=== PATIENT | female | born 1995 | race American Indian/Alaskan Native ===

== ENCOUNTER 2017-07-02 18:30 | Observation (INO) | payer MEDICAID ==
[2017-07-02] MEDS ORDERED: LACTATED RINGERS 1,000 ML IV ONE ×2 (19:33→22:06)
[2017-07-02 20:58] LABS: Bilirubin,Urine NEG (Negative); Blood,Urine NEG (Negative); Color,Urine Yellow (Yellow); Mucus,Urine FEW /HPF; Nitrite,Urine NEG (Negative); Protein,Urine <15 mg/dL mg/dL (Negative); Urobilinogen,Urine < 2.0 mg/dL (<2.0)
[2017-07-02] MEDS ORDERED: PROCARDIA*For Tocolysis only PO SCH ×2 (22:00→23:00)
[2017-07-02] MEDS: PROCARDIA*For Tocolysis only PO SCH ×2 (22:42→23:05)
[2017-07-02] MEDS ORDERED: LACTATED RINGERS 1,000 ML IV SCH (23:45)
[2017-07-03] MEDS: PROCARDIA*For Tocolysis only PO SCH ×2 (02:25→06:47)
[2017-07-03 08:32] LABS: Hematocrit 27.5 % (30.3-42.9); Hemoglobin 8.6 gm/dl (10.1-14.3); Mean Corpuscular HGB Conc 31 % (30-34); Mean Corpuscular Volume 76 fl (79-97); Platelet Count 357 K/mm3 (140-440); Red Blood Count 3.63 M/mm3 (3.65-5.03); Red Cell Distribution Width 19.4 % (13.2-15.2)
[2017-07-03 08:33] LABS: Mean Corpuscular Hemoglobin 24 pg (28-32)
[2017-07-03 08:42] VITALS: BP 115/63
[2017-07-03 09:23] LABS: Alanine Aminotransferase 9 units/L (7-56); Albumin 3.1 g/dL (3.9-5); BUN/Creatinine Ratio 13; Blood Urea Nitrogen 5 mg/dL (7-17); Calcium 8.5 mg/dL (8.4-10.2); Hemolysis Index 3
[2017-07-03] MEDS ORDERED: PRENATAL VITAMIN PO SCH (10:00)
[2017-07-03] MEDS ORDERED: TYLENOL PO NR (10:00)
== END 2017-07-03 10:17 | disposition home or self-care (01) ==
LOC: TRG 18:30 → LD 07-03 00:03
PROVIDERS: ADMIT Obstetrics & Gynecology; ATTEND Obstetrics & Gynecology
DX: Z34.90 Encounter for supervision of normal pregnancy, unspecified, unspecified trimester (principal); Z3A.00 Weeks of gestation of pregnancy not specified
CPT/HCPCS: 36415; 80053; 81001; 82731; 85027; 96360; 96361; G0378; J7120

== ENCOUNTER 2017-07-23 21:02 | Inpatient (IN) | payer MEDICAID ==
[2017-07-23] MEDS ORDERED: STADOL IV PRN (21:15)
[2017-07-23 22:27] LABS: Basophils % (Auto) 0.4 % (0.0-1.8); Eosinophils % (Auto) 0.1 % (0.0-4.3); Hematocrit 27.4 % (30.3-42.9); Hemoglobin 8.5 gm/dl (10.1-14.3); Lymphocytes # (Auto) 2.1 K/mm3 (1.2-5.4); Mean Corpuscular HGB Conc 31 % (30-34); Mean Corpuscular Volume 76 fl (79-97); Monocytes # (Auto) 0.6 K/mm3 (0.0-0.8); Monocytes % (Auto) 5.3 % (0.0-7.3); Platelet Count 404 K/mm3 (140-440); Red Blood Count 3.63 M/mm3 (3.65-5.03); Red Cell Distribution Width 19.7 % (13.2-15.2)
[2017-07-23] MEDS: LACTATED RINGERS 1,000 ML IV SCH (22:29)
[2017-07-23 22:31] LABS: Mean Corpuscular Hemoglobin 23 pg (28-32)
--- NOTE | 2017-07-23 22:51 | Ultrasound Report ---
FINAL REPORT PROCEDURE: US OB FOLLOW UP TECHNIQUE: Real-time transabdominal sonography of the uterus, placenta, amniotic fluid, adnexa, and fetus was performed with image documentation. Measurements were obtained to determine age/size. M-mode Doppler was used to document heartbeat. CPT 36314 HISTORY: ROM, macrosomia COMPARISON: No prior studies are available for comparison. FINDINGS: ADDITIONAL GESTATION: None. GENERAL: IUP: Single living intrauterine . Position: Cephalic Placental position: Grade 2 anterior, without previa. Amniotic fluid volume: Normal. MATERNAL: Uterus: Within normal limits. Cervical length: 2.9 cm. Internal Os: Closed. Small amount of fluid collection in the vaginal canal proximal cervix FETUS: Heart rate and rhythm: 147 BPM, Regular. MEASUREMENTS: BPD: 9.8 consistent 40 week 1 day HC: 35.5 consistent 41 week 5 day AC: 36.5 consistent 40 weeks 3 days FL: 8.1 consistent 41 week 3 day Mean Gestational Age (composite criteria): 41 week 0 day Ratio biometry: As above Estimated Weight: 4185 grams. Estimated Due Date (earliest scan): 07/16/2017 IMPRESSION: Single intrauterine gestation at 41 week 0 day. Estimated due date: 07/16/2017. Normal survey with appropriate growth.
[2017-07-23] MEDS ORDERED: PITOCin/NS 30 UNIT/500ML 30 UNITS/500 ML BAG IV SCH ×2 (23:45)
[2017-07-23] MEDS ORDERED: PITOCin/NS 20 UNIT/1000ML DRIP 20 UNITS/1,000 ML BAG IV SCH (23:45)
[2017-07-23] MEDS ORDERED: LACTATED RINGERS 1,000 ML IV SCH (23:45)
[2017-07-23] MEDS ORDERED: NUBAIN IV PRN (23:48)
[2017-07-23] MEDS ORDERED: NARCAN 0.4 MG/1 ML IV PRN (23:48)
[2017-07-23] MEDS ORDERED: BRETHINE IVP PRN (23:48)
[2017-07-23] MEDS ORDERED: PHENERGAN PR PRN (23:48)
[2017-07-23] MEDS ORDERED: ZOFRAN IV PRN (23:48)
[2017-07-23] MEDS ORDERED: SUBLIMAZE IV PRN (23:48)
[2017-07-23] MEDS ORDERED: MINERAL OIL PO PRN (23:48)
[2017-07-23] MEDS ORDERED: BRETHINE SUB-Q PRN (23:48)
[2017-07-23] MEDS ORDERED: XYLOCAINE 2% INFILTRATI ONE (23:48)
[2017-07-23] MEDS ORDERED: ePHEDrine SULFATE IV PRN (23:48)
--- NOTE | 2017-07-24 | History and Physical Report ---
History of Present Illness Date of examination: 07/23/17 Date of admission: 07/23/17 21:02 Chief complaint: broke my water History of present illness: This is a 21 yo at 37+3 weeks admitted to labor and delivery for gross rupture. She stated that she broke her water at 845. her course include LGA. Previous US 4022g on 07/12/17. plan per MFM ( spoke with Dr. Jackson) was to repeat her US at 38 weeks and if >4500 g could offer Primary csec. US performed today shows EFW 4185g. It was then discussed tonight r/b/a of primary c/sec. We agreed after discussing ACOG recommendations for a trial of labor. We had a long discussion with [employer] and and all agreed for a trial of labor. Patient has been patient of [facility] since 9 weeks with early US. She has anemia with hemoglobin at 28 weeks of 8. She has glucose intolerance but 3hr GTT neg. Past History Past Medical History: no pertinent history Past Surgical History: no surgical history Family/Genetic History: none Social history: no significant social history, . denies: smoking, alcohol abuse, prescription drug abuse - Obstetrical History Expected Date of Delivery: 08/10/17 Actual Gestation: 37 Week(s) 4 Day(s) : 1 Para: 0 Hx # Term Pregnancies: 0 Number of Pregnancies: 0 Spontaneous Abortions: 0 Induced : 0 Number of Living Children: 0 Medications and Allergies Allergies Allergy/AdvReac Type Severity Reaction Status Date / Time No Known Allergies Allergy Unverified 07/02/17 18:30 Home Medications Medication Instructions Recorded Confirmed Last Taken Type No Known Home Medications [No 07/03/17 07/03/17 Unknown History Reported Home Medications] Active Meds: Active Medications Butorphanol Tartrate (Stadol) 2 mg IV Q2H PRN PRN Reason: Labor Pain Lactated Ringer's (Lactated Ringers) 1,000 mls @ 125 mls/hr IV DIRECT DEB Last Admin: 07/23/17 22:29 Dose: 125 mls/hr Review of Systems All systems: negative Genitourinary: leakage of fluid - Vital Signs Vital signs: Vital Signs Temp Pulse Resp BP 98.2 F 87 18 126/62 07/23/17 21:19 07/23/17 21:19 07/23/17 21:19 07/23/17 21:19 Temp Pulse Resp BP Pulse Ox 98.2 F 87 18 126/62 07/23/17 21:19 07/23/17 21:24 07/23/17 21:19 07/23/17 21:24 - Physical Exam Breasts: Positive: normal Cardiovascular: Regular rate, Normal S1 Lungs: Positive: Clear to auscultation, Normal air movement Abdomen: Positive: normal appearance, soft, normal bowel sounds. Negative: distention, tenderness, guarding Genitourinary (Female): Positive: normal external genitalia, normal perenium Vulva: both: normal Vagina: Positive: normal moisture Uterus: Positive: enlarged Adnexa: both: normal Anus/Rectum: Positive: normal perianal skin Extremities: Positive: normal Deep Tendon Reflex Grade: Normal +2 - Obstetrical FHR: category 1 Uterine Contraction Monitor Mode: External Cervical Dilatation: 1 Cervical Effacement Percentage: 50 station: 3 Uterine Contraction Pattern: Irregular Uterine Tone Measurement Phase: Contraction Uterine Contraction Intensity: Mild Results Result Diagrams: 07/23/17 22:03 Abnormal lab results 07/23/17 Range/Units 22:03 WBC 11.6 H (4.5-11.0) K/mm3 RBC 3.63 L (3.65-5.03) M/mm3 Hgb 8.5 L (10.1-14.3) gm/dl Hct 27.4 L (30.3-42.9) % MCV 76 L (79-97) fl MCH 23 L (28-32) pg RDW 19.7 H (13.2-15.2) % Seg Neutrophils % 76.2 H (40.0-70.0) % Seg Neutrophils # 8.8 H (1.8-7.7) K/mm3 All other labs normal. Assessment and Plan A/P HD#1 SROM, term at 37+4 weeks, LGA admit to labor and delivery counseled about risk of primary c/sec vs trial of labor offer epidural initate pitocin for IOL close monitor of labor curve close monitor of maternal and status
[2017-07-24] MEDS: LACTATED RINGERS 1,000 ML IV SCH ×2 (02:49→08:35)
--- NOTE | 2017-07-24 07:58 | Progress Note ---
Assessment and Plan A: IUP at term Remote from delivery LGA Category 2 tracing P: MD consult Primary C/S Subjective - Subjective Date of service: 07/24/17 Patient reports: loss of fluid (clear), movement normal, contractions, no new complaints, no vaginal bleeding Objective - Vital Signs Vital Signs: Vital Signs - 12hr 07/23/17 07/23/17 07/24/17 21:19 21:24 03:15 Temperature 98.2 F Pulse Rate 87 87 71 Respiratory 18 Rate Blood Pressure 126/62 127/81 Blood Pressure 126/62 [Left] O2 Sat by Pulse 98 Oximetry 07/24/17 07/24/17 07/24/17 03:20 03:25 03:30 Temperature Pulse Rate 78 72 94 H Respiratory Rate Blood Pressure Blood Pressure [Left] O2 Sat by Pulse 97 96 96 Oximetry 07/24/17 07/24/17 07/24/17 03:35 03:40 03:45 Temperature Pulse Rate 70 71 65 Respiratory Rate Blood Pressure Blood Pressure [Left] O2 Sat by Pulse 96 97 96 Oximetry 07/24/17 07/24/17 07/24/17 03:50 03:55 04:00 Temperature Pulse Rate 81 77 73 Respiratory Rate Blood Pressure Blood Pressure [Left] O2 Sat by Pulse 97 97 96 Oximetry 07/24/17 07/24/17 07/24/17 04:01 04:05 04:10 Temperature Pulse Rate 91 H 70 80 Respiratory Rate Blood Pressure Blood Pressure [Left] O2 Sat by Pulse 94 97 96 Oximetry 07/24/17 07/24/17 07/24/17 04:15 04:20 04:25 Temperature Pulse Rate 73 97 H 92 H Respiratory Rate Blood Pressure 125/81 Blood Pressure [Left] O2 Sat by Pulse 97 97 97 Oximetry 07/24/17 07/24/17 07/24/17 04:30 04:32 04:35 Temperature Pulse Rate 93 H 77 82 Respiratory Rate Blood Pressure Blood Pressure [Left] O2 Sat by Pulse 97 94 96 Oximetry 07/24/17 07/24/17 07/24/17 04:40 04:45 04:50 Temperature Pulse Rate 68 74 73 Respiratory Rate Blood Pressure Blood Pressure [Left] O2 Sat by Pulse 96 96 96 Oximetry 07/24/17 07/24/17 07/24/17 04:55 05:00 05:05 Temperature Pulse Rate 89 67 89 Respiratory Rate Blood Pressure Blood Pressure [Left] O2 Sat by Pulse 98 96 98 Oximetry 07/24/17 07/24/17 07/24/17 05:08 05:16 05:21 Temperature Pulse Rate 86 Respiratory 18 Rate Blood Pressure Blood Pressure [Left] O2 Sat by Pulse 99 97 Oximetry 07/24/17 07/24/17 07/24/17 05:26 05:31 05:36 Temperature Pulse Rate 84 89 75 Respiratory Rate Blood Pressure Blood Pressure [Left] O2 Sat by Pulse 98 96 96 Oximetry 07/24/17 07/24/17 07/24/17 05:41 05:46 05:51 Temperature Pulse Rate 95 H 79 80 Respiratory Rate Blood Pressure Blood Pressure [Left] O2 Sat by Pulse 97 96 96 Oximetry 07/24/17 07/24/17 07/24/17 05:56 06:01 06:06 Temperature Pulse Rate 74 87 76 Respiratory Rate Blood Pressure Blood Pressure [Left] O2 Sat by Pulse 96 96 97 Oximetry 07/24/17 07/24/17 07/24/17 06:11 06:15 06:16 Temperature Pulse Rate 76 68 71 Respiratory Rate Blood Pressure 126/66 Blood Pressure [Left] O2 Sat by Pulse 97 97 Oximetry 07/24/17 07/24/17 07/24/17 06:21 06:26 06:31 Temperature Pulse Rate 96 H 84 76 Respiratory Rate Blood Pressure Blood Pressure [Left] O2 Sat by Pulse 97 97 97 Oximetry 07/24/17 07/24/17 07/24/17 06:33 06:36 06:40 Temperature Pulse Rate 78 82 88 Respiratory Rate Blood Pressure Blood Pressure [Left] O2 Sat by Pulse 94 96 94 Oximetry 07/24/17 07/24/17 07/24/17 06:41 06:46 06:51 Temperature Pulse Rate 92 H 88 73 Respiratory Rate Blood Pressure Blood Pressure [Left] O2 Sat by Pulse 92 97 96 Oximetry 07/24/17 07/24/17 07/24/17 06:54 06:56 07:01 Temperature Pulse Rate 98 H 62 77 Respiratory Rate Blood Pressure Blood Pressure [Left] O2 Sat by Pulse 94 97 97 Oximetry 07/24/17 07/24/17 07/24/17 07:06 07:11 07:16 Temperature Pulse Rate 70 69 76 Respiratory Rate Blood Pressure 139/93 Blood Pressure [Left] O2 Sat by Pulse 98 96 98 Oximetry 07/24/17 07/24/17 07/24/17 07:21 07:25 07:26 Temperature Pulse Rate 66 67 66 Respiratory Rate Blood Pressure Blood Pressure [Left] O2 Sat by Pulse 96 94 94 Oximetry 07/24/17 07/24/17 07/24/17 07:31 07:33 07:36 Temperature Pulse Rate 82 93 H 83 Respiratory Rate Blood Pressure Blood Pressure [Left] O2 Sat by Pulse 96 93 96 Oximetry - Exam Breasts: deferred Abdomen: Present: normal appearance FHR: category 2 FHR comments: absent variability Uterine Contraction Monitor Mode: External Cervical Dilatation: 3 Cervical Effacement Percentage: 80 station: 3 Uterine Tone Measurement Phase: Resting Uterine Contraction Intensity: Strong/Firm Extremities: edema - Labs Labs: Abnormal Labs 07/23/17 22:03 WBC 11.6 H RBC 3.63 L Hgb 8.5 L Hct 27.4 L MCV 76 L MCH 23 L RDW 19.7 H Seg Neutrophils % 76.2 H Seg Neutrophils # 8.8 H Laboratory Results - last 24 hr 07/23/17 07/23/17 22:03 22:03 WBC 11.6 H RBC 3.63 L Hgb 8.5 L Hct 27.4 L MCV 76 L MCH 23 L MCHC 31 RDW 19.7 H Plt Count 404 Lymph % (Auto) 18.0 [place] % (Auto) 5.3 Eos % (Auto) 0.1 Baso % (Auto) 0.4 Lymph # 2.1 [place] # 0.6 Eos # 0.0 Baso # 0.0 Seg Neutrophils % 76.2 H Seg Neutrophils # 8.8 H Blood Type O POSITIVE Antibody Screen Negative
--- NOTE | 2017-07-24 08:24 | Anesthesia Consultation ---
Anesthesia Consult and Med Hx Date of service: 07/24/17 - Airway Anesthetic Teeth Evaluation: Good (braces upper and lower) ROM Head & Neck: Adequate Mental/Hyoid Distance: Adequate Mallampati Class: Class II Intubation Access Assessment: Probably Good - Pre-Operative Health Status ASA Pre-Surgery Classification: ASA3 Proposed Anesthetic Plan: Epidural, Spinal - Pulmonary Hx Asthma: No COPD: No Hx Pneumonia: No - Cardiovascular System Hx Hypertension: No - Central Nervous System Hx Seizures: No Hx Psychiatric Problems: No - Endocrine Hx Renal Disease: No Hx End Stage Renal Disease: No Hx Hypothyroidism: No Hx Hyperthyroidism: Yes (2010) - Hematic Hx Anemia: Yes Hx Sickle Cell Disease: No - Other Systems Hx Alcohol Use: No Hx Obesity: Yes (Morbid obesity 41.9)
[2017-07-24] MEDS ORDERED: REGLAN IV NR (08:30)
[2017-07-24] MEDS ORDERED: BICITRA PO NR (08:30)
--- NOTE | 2017-07-24 08:37 | Event Note ---
Date: 07/24/17 Notified by [facility] that tracing has demonstrated minimal variability with occasional accels that do not meet criteria for a reactive tracing. Intrapartum course complicated by suspected LGA. Patient has received pitocin augmentation for SROM with cervical advancement to 3cm. The patient is currently remote from delivery. Patient is aware she is at significant risk for an arrest disorder. Will proceed with a primary delivery.
[2017-07-24] MEDS ORDERED: NARCAN 0.4 MG/1 ML IV PRN ×2 (08:38→10:00)
--- NOTE | 2017-07-24 08:41 | Procedure Note ---
OB Delivery Note - Delivery Date of Delivery: 07/24/17 Surgeon: WALESKA CHILD Estimated blood loss: other (700ml) - Section Preop diagnosis: nonreassuring FHR tracing Postop diagnosis: same section procedure: section, primary low transverse Disposition: PACU Complications: none - A at 1 minute: 8 at 5 minutes: 9 Infant Gender: Male (weight 9 lbs. 1 oz.)
--- NOTE | 2017-07-24 08:43 | Operative Report ---
Operative Report Operative Report: Date of surgery: 07/24/2017 Preoperative diagnosis: at 37+4 weeks; Nonreassuring heart rate tracing; Large for gestational age Postoperative diagnosis: Same as above Procedure: Primary low transverse delivery Surgeon: Cathy Eli M.D. Anesthesia: Regional Estimated blood loss: 700 mL Urine output: 400ml IV fluids: 700 mL Findings: Liveborn male infant with Apgars of 8 and 9 and weight 9 lbs. 1 oz. Indications: 21-year-old at 37+4 weeks who presents with spontaneous rupture membranes. The patient received Pitocin augmentation however her intrapartum course was complicated by a tracing with evidence of minimal variability. The patient's course was complicated by suspected large for gestational age . The patient was counseled for primary delivery. Procedure: The patient was taken to the operating room and given regional anesthesia without complication. She was prepped and draped in a normal sterile fashion. A Pfannenstiel skin incision was made down to layer the fascia which was nicked in the midline extended laterally with the Bovie cautery. The superior aspect of the rectus fascia was grasped with [place] clamps x2 and the rectus muscles off sharply. This was done in inferior fashion as well. The rectus muscle midline and peritoneum entered bluntly. An Socrates retractor was then inserted. A bladder blade was placed. The vesicouterine peritoneum was then entered sharply with Metzenbaum scissors. A bladder flap was created digitally. A low transverse uterine incision was then made and extended digitally. There was clear fluid upon entry into the uterine cavity. The head was delivered through the incision with fundal pressure. A loose double nuchal cord was manually reduced. The cord was clamped and cut x2 and infant was passed off to pediatrics. The placenta was then manually extracted. The uterus was then exteriorized and cleared of clots and debris. The uterine incision was then closed in a running locked fashion with 0 Vicryl additional imbricating stitch was applied for 2 layer closure. The serosa was then reapproximated with 3-0 Vicryl. The posterior cul-de-sac was then copiously irrigated. The uterus was replaced back into the abdomen and pelvis were the gutters were then irrigated. The Socrates retractor was then removed. The peritoneum was then reapproximated with 3-0 Vicryl incorporating the rectus muscle. The fascia was then closed with 0 Vicryl in a running fashion. The skin was then reapproximated with 3-0 Monocryl on a Edgardo needle subcuticular fashion. Steri-Strips to place across the incision and a Crede procedures performed at the end of the surgery. A pressure dressing was applied to the incision. The surgery productive of a liveborn liveborn male infant with Apgars of 8 and 9 weight 9 lbs. 1 oz. The patient was taken to the recovery room in stable condition. All sponge laps and needle counts correct x2.
[2017-07-24] MEDS ORDERED: WATER FOR IRRIG STERILE IR ONE (08:50)
[2017-07-24] MEDS ORDERED: NACL 0.9% IR ONE (08:50)
[2017-07-24] MEDS ORDERED: ASTRAMORPH PF 10MG/10ML ONE (08:50)
[2017-07-24] MEDS ORDERED: SODIUM CHLORIDE FLUSH SYRINGE 10 ML IV NR (09:00)
[2017-07-24] MEDS ORDERED: PEPCID IV NR (09:00)
[2017-07-24] MEDS ORDERED: LACTATED RINGERS 1,000 ML IV SCH (09:00)
[2017-07-24] MEDS ORDERED: PITOCin/NS 20 UNIT/1000ML DRIP 20 UNITS/1,000 ML BAG IV SCH (09:00)
[2017-07-24] MEDS ORDERED: ANCEF/STERILE WATER 2 GM/20 ML 2 GM/20 ML SYRINGE IV NR (09:00)
[2017-07-24] MEDS ORDERED: NEO SYNEPHRINE/NS Syringe(OR USE) IV ONE (09:16)
[2017-07-24] MEDS ORDERED: XYLOCAINE MPF 2% ONE ×3 (09:29→09:32)
[2017-07-24] MEDS ORDERED: LANSINOH TP PRN (09:30)
[2017-07-24] MEDS ORDERED: TYLENOL PO PRN (09:30)
[2017-07-24] MEDS ORDERED: SODIUM CHLORIDE FLUSH SYRINGE 10 ML IV PRN (10:00)
[2017-07-24] MEDS ORDERED: MORPHINE IV PRN (10:00)
[2017-07-24] MEDS ORDERED: TUCKS PAD TP PRN (10:00)
[2017-07-24] MEDS ORDERED: BENADRYL IV PRN (10:00)
[2017-07-24] MEDS ORDERED: TORADOL IV PRN (10:00)
[2017-07-24] MEDS ORDERED: PHENERGAN PO PRN (10:00)
[2017-07-24] MEDS ORDERED: ZOFRAN IV PRN (10:00)
[2017-07-24] MEDS ORDERED: ZOFRAN ONE (10:04)
[2017-07-24] MEDS ORDERED: PHENERGAN PR PRN (10:30)
[2017-07-24] MEDS ORDERED: DILAUDID IV PRN (10:30)
[2017-07-24] MEDS: PITOCin/NS 20 UNIT/1000ML DRIP 20 UNITS/1,000 ML BAG IV SCH ×2 (11:12→11:13)
[2017-07-24] MEDS ORDERED: TORADOL ONE (13:18)
[2017-07-24] MEDS: BENADRYL IV PRN ×2 (13:23→20:15)
--- NOTE | 2017-07-24 13:53 | Post Anesthesia Evaluation ---
- Post Anesthesia Evaluation Patient Participated: Yes Airway Patent: Yes Stable Respiratory Function: Yes Nausea/Vomiting: No Temp > 96.8F: Yes Pain Manageable: Yes Adequeate Hydration: Yes Anesthesia Complications: No Patient on Ventilator: No
[2017-07-24] MEDS ORDERED: NUBAIN IV ONE (15:08)
[2017-07-24] MEDS: D5LR 1,000 ML IV SCH (18:48)
[2017-07-24] MEDS: TORADOL IV PRN (20:16)
[2017-07-24 21:22] LABS: Hemoglobin 7.3 gm/dl (10.1-14.3)
[2017-07-24 21:47] LABS: Hematocrit 23.8 % (30.3-42.9)
[2017-07-24] MEDS ORDERED: MILK OF MAGNESIA PO PRN (22:00)
[2017-07-25] MEDS: D5LR 1,000 ML IV SCH (02:21)
[2017-07-25] MEDS: TORADOL IV PRN (08:35)
--- NOTE | 2017-07-25 10:21 | Progress Note ---
Assessment and Plan A: POD# 1 s/p primary section at term, Chronic anemia P: Routine postoperative care. Abdominal binder. Subjective - Subjective Date of service: 07/25/17 Principal diagnosis: s/p primary section, chronic anemia Interval history: Pt without complaints. Patient reports: appetite normal, voiding normally, pain well controlled, flatus , ambulating normally, no dizzy ambulation, no bowel movement : doing well Objective - Vital Signs Latest vital signs: Vital Signs Temp Pulse Resp BP BP Pulse Ox 07/25/17 08:29 98.2 F 76 18 119/75 98 07/25/17 04:35 98.0 F 81 18 102/61 97 07/25/17 00:20 97.7 F 74 18 96/57 96 07/24/17 20:10 98.1 F 81 20 145/85 98 07/24/17 11:20 98.3 F 65 10 L 106/73 99 07/24/17 11:15 65 15 110/67 98 07/24/17 11:10 62 10 L 116/61 98 07/24/17 11:05 60 15 121/66 98 07/24/17 11:00 65 17 116/74 97 07/24/17 10:56 79 17 119/73 97 07/24/17 10:50 84 15 118/68 97 07/24/17 10:45 59 L 14 118/68 96 07/24/17 10:40 65 15 100/61 97 07/24/17 10:35 84 18 96/55 97 07/24/17 10:30 73 18 119/88 95 07/24/17 10:26 15 119/88 96 07/24/17 10:23 18 96 Intake and Output 07/24/17 07/25/17 07/25/17 22:59 06:59 14:59 Intake Total 120 1423.75 240 Output Total 2200 1200 Balance -2080 223.75 240 Intake: IV 943.75 D5lr 1,000 ml @ 125 mls/ 943.75 hr IV DIRECT DEB Rx#: [id number] Oral 120 480 240 Output: Urine 2200 1200 Indwelling Catheter 2200 1200 Other: Total, Intake Amount 120 240 240 Total, Output Amount 500 1200 # Voids Indwelling Catheter 1 - Exam Breasts: Present: deferred Cardiovascular: Present: Regular rate Lungs: Present: Clear to auscultation Abdomen: Present: soft (obese ), distention (mild ) Uterus: Present: fundal height below umbilicus Extremities: Present: edema Incision: Present: dressed - Labs Labs: Abnormal lab results 07/24/17 Range/Units 20:50 Hgb 7.3 L (10.1-14.3) gm/dl Hct 23.8 L (30.3-42.9) %
[2017-07-25 10:44] LABS: Hematocrit 23.2 % (30.3-42.9); Hemoglobin 7.4 gm/dl (10.1-14.3)
[2017-07-25] MEDS: FEOSOL PO SCH ×2 (10:56→22:00)
[2017-07-25] MEDS: PERCOCET 5/325 PO PRN ×2 (14:52→19:01)
[2017-07-25] MEDS: MOTRIN PO PRN (14:54)
[2017-07-26] MEDS: MOTRIN PO PRN ×4 (05:37→23:45)
[2017-07-26] MEDS: FEOSOL PO SCH ×2 (10:37→21:25)
--- NOTE | 2017-07-26 14:02 | Progress Note ---
Assessment and Plan O; VSS AF PP H/H: 7.4/23.2 A: Stable POD # 2 Anemia P:D/C in am Subjective - Subjective Date of service: 07/26/17 Principal diagnosis: s/p primary section, chronic anemia Patient reports: appetite normal, voiding normally, pain well controlled, flatus , ambulating normally Topping: doing well, bottle feeding Objective - Vital Signs Latest vital signs: Vital Signs Temp Pulse Resp BP Pulse Ox 07/26/17 12:16 20 07/26/17 07:19 98.2 F 73 16 123/79 97 07/26/17 00:51 97.5 F L 73 18 134/64 07/25/17 16:30 99.1 F 95 H 18 118/75 96 Intake and Output 07/25/17 07/26/17 07/26/17 22:59 06:59 14:59 Intake Total 600 360 720 Balance 600 360 720 Intake: Oral 600 720 Intake, Free Water 360 Other: Total, Intake Amount 240 240 # Voids Void 1 1 1 # Bowel Movements 1 - Exam Breasts: Present: deferred Abdomen: Present: normal appearance, soft. Absent: distention, tenderness Uterus: Present: normal, firm, fundal height below umbilicus. Absent: bogginess Extremities: Present: normal Incision: Present: normal, dry, intact
--- NOTE | 2017-07-26 14:04 | Discharge Summary ---
Providers - Providers Date of Admission: 07/23/17 21:02 Date of discharge: 07/27/17 Attending physician: TALYA SLADE MD Primary care physician: TALYA SLADE MD Hospitalization Reason for admission: rupture of membranes, IUP at term Delivery: Procedure: primary low transverse Episiotomy: none Laceration: none Incision: normal, dry, intact Other procedures: none complications: none Discharge diagnosis: IUP at term delivered baby: female Condition at discharge: Good Disposition: DC-01 TO HOME OR SELFCARE Plan - Discharge Medications Prescriptions: Docusate Sodium [Colace] 100 mg PO BID PRN #60 capsule PRN Reason: Constipation Ferrous Sulfate [Feosol] 325 mg PO BID #60 tablet Ibuprofen [Motrin] 800 mg PO Q8HR PRN #60 tablet PRN Reason: Pain Oxycodone HCl/Acetaminophen [Percocet 7.5/325 mg] 1 each PO Q6HR PRN #45 tablet PRN Reason: Pain - Provider Discharge Summary Activity: routine, no sex for 6 weeks, no heavy lifting 4 weeks, no strenuous exercise Diet: routine Additional instructions: [] Smoking cessation referral if applicable(refer to patient education folder for contact #) [] Refer to [facility]'s [facility] Booklet Call your doctor immediately for: * Fever > 100.5 * Heavy vaginal bleeding ( >1 pad per hour) * Severe persistent headache * Shortness of breath * Reddened, hot, painful area to leg or breast * Drainage or odor from incision. * Keep incision clean and dry at all times and follow doctor's instructions regarding bathing/showering - Follow up plan Follow up: TALYA SLADE MD [Primary Care Provider] - 14 Days CARLTON CARDENAS CNM [Advanced Practice Nurse] - 14 Days
[2017-07-27] MEDS: MOTRIN PO PRN (05:02)
[2017-07-27 05:38] VITALS: BP 120/70
[2017-07-27] MEDS ORDERED: BOOSTRIX IM ONE (06:00)
== END 2017-07-27 12:14 | disposition home or self-care (01) | DRG 765 ==
LOC: LD 21:02 → OB 07-24 12:45
PROVIDERS: ADMIT Obstetrics & Gynecology; ATTEND Obstetrics & Gynecology
PROC: 10D00Z1 Extraction of Products of Conception, Low, Open Approach (ICD-10-PCS; principal; 2017-07-24)
DX: O76 Abnormality in fetal heart rate and rhythm complicating labor and delivery (principal); Z68.41 Body mass index [BMI] 40.0-44.9, adult; O69.81X0 Labor and delivery complicated by cord around neck, without compression, not applicable or unspecified; O99.02 Anemia complicating childbirth; D64.9 Anemia, unspecified; Z3A.37 37 weeks gestation of pregnancy; E66.01 Morbid (severe) obesity due to excess calories; O36.63X0 Maternal care for excessive fetal growth, third trimester, not applicable or unspecified; Z37.0 Single live birth
CPT/HCPCS: 36415; 76816; 85014; 85018; 85025; 86592; 86850; 86900; 86901; 90471; 90715; J0595; J0690; J1200; J1885; J2274; J2300; J2370; J2405; J2590; J2765; J3010; J7120; J7121

== ENCOUNTER 2021-08-14 05:02 | Inpatient (IN) | payer MEDICAID ==
[2021-08-14] MEDS ORDERED: LACTATED RINGERS 1,000 ML ONE ×2 (06:53→10:34)
[2021-08-14] MEDS ORDERED: FAMOTIDINE 20 MG/2 ML INJ IV ONE (08:01)
[2021-08-14] MEDS ORDERED: METOCLOPRAMIDE 10 MG/2 ML INJ IV ONE (08:01)
[2021-08-14] MEDS ORDERED: BICITRA ORAL LIQD 30ML PO ONE (08:01)
--- NOTE | 2021-08-14 08:11 | Ultrasound Report ---
US OB limited INDICATION: KAREN. TECHNIQUE: Limited OB ultrasound COMPARISON: None available. FINDINGS: The amniotic fluid index measures 5.5 cm, below the normal cut off value. The heart rate measur es 1 40 bpm. Signer Name: Hua Cardoso MD Signed: 08/14/2021 8:07 AM Workstation Name: [id number]
[2021-08-14 08:12] LABS: Basophils % (Auto) 0.2 % (0.0-1.8); Eosinophils % (Auto) 0.1 % (0.0-4.3); Hematocrit 33.4 % (30.3-42.9); Hemoglobin 10.7 gm/dl (10.1-14.3); Lymphocytes # (Auto) 2.5 K/mm3 (1.2-5.4); Lymphocytes % (Auto) 23.6 % (13.4-35.0); Mean Corpuscular HGB Conc 32 % (30-34); Mean Corpuscular Volume 79 fl (79-97); Monocytes # (Auto) 0.4 K/mm3 (0.0-0.8); Monocytes % (Auto) 4.1 % (0.0-7.3); Platelet Count 348 K/mm3 (140-440); Red Blood Count 4.25 M/mm3 (3.65-5.03)
[2021-08-14 08:14] LABS: Red Cell Distribution Width 24.9 % (13.2-15.2)
[2021-08-14] MEDS ORDERED: LACTATED RINGERS 1,000 ML IV SCH (08:15)
[2021-08-14] MEDS ORDERED: KETOROLAC 30 MG/1 ML INJ ONE (08:55)
[2021-08-14] MEDS ORDERED: dexAMETHasone 20 MG/5 ML VIAL ONE (08:55)
[2021-08-14] MEDS ORDERED: BUPIVACAINE/PF (0.5%) 5 MG/1 ML 30 ML VIAL INFILTRATI ONE (08:55)
[2021-08-14] MEDS ORDERED: ONDANSETRON 4 MG/2 ML INJ ONE (08:55)
[2021-08-14] MEDS ORDERED: ceFAZolin/Water 2 GM/20 ML 2 GM/20 ML SYRINGE IV NR (09:00)
[2021-08-14] MEDS ORDERED: OXYTOCIN DRIP 30 UNITS/500 ML BAG IV SCH ×2 (09:00→14:12)
[2021-08-14] MEDS ORDERED: diphenhydrAMINE 50 MG/ML VIAL IV PRN ×2 (09:06→16:28)
[2021-08-14] MEDS ORDERED: PROMETHAZINE 25 MG RECT SUPP PR PRN ×2 (09:06→16:28)
[2021-08-14] MEDS ORDERED: NalbUPHINE 10 MG/1 ML INJ IV PRN ×2 (09:06→16:28)
[2021-08-14] MEDS ORDERED: HYDROmorphone 1 MG/1 ML INJ IV PRN (09:06)
[2021-08-14] MEDS ORDERED: ONDANSETRON 4 MG/2 ML INJ IV PRN ×2 (09:06→16:28)
[2021-08-14] MEDS ORDERED: NALOXONE 0.4 MG/1 ML INJ IV PRN ×3 (09:06→16:28)
[2021-08-14] MEDS ORDERED: PROMETHAZINE 25 MG TAB PO PRN ×2 (09:06→16:28)
--- NOTE | 2021-08-14 09:07 | Anesthesia Day of Surgery ---
Anesthesia Day of Surgery - Day of Surgery Patient Examined: Yes Patient H&P Reviewed: Yes Patient is NPO: Yes Beta Blockers: No Cardiac Clearance: No Pulmonary Clearance: No Harris's Test: N/A
--- NOTE | 2021-08-14 09:08 | Anesthesia Consultation ---
Anesthesia Consult and Med Hx Date of service: 08/14/21 - Airway Anesthetic Teeth Evaluation: Good ROM Head & Neck: Adequate Mental/Hyoid Distance: Adequate Mallampati Class: Class III Intubation Access Assessment: Possibly Difficult - Pulmonary Exam CTA: Yes - Cardiac Exam Cardiac Exam: RRR - Pre-Operative Health Status ASA Pre-Surgery Classification: ASA3 Proposed Anesthetic Plan: Spinal Nerve Block: TAP - Pulmonary Hx Smoking: No Hx Asthma: No COPD: No Hx Pneumonia: No Hx Sleep Apnea: No - Cardiovascular System Hx Hypertension: No Hx Heart Attack/AMI: No Hx Angina: No - Central Nervous System Hx Seizures: No Hx Psychiatric Problems: No - Gastrointestinal Hx Gastroesophageal Reflux Disease: No - Endocrine Hx Renal Disease: No Hx End Stage Renal Disease: No Hx Liver Disease: No Hx Insulin Dependent Diabetes: No Hx Non-Insulin Dependent Diabetes: No Hx Hypothyroidism: No Hx Hyperthyroidism: No - Hematic Hx Anemia: No Hx Sickle Cell Disease: No - Other Systems Hx Alcohol Use: No Hx Obesity: Yes (Morbid obesity 41.9) - Additional Comments Anesthesia Medical History Comments: previous c/s x1
[2021-08-14] MEDS ORDERED: ePHEDrine SULFATE 50 MG/1 ML INJ ONE (10:25)
[2021-08-14] MEDS ORDERED: ceFAZolin 1 GM VIAL ONE (10:43)
--- NOTE | 2021-08-14 10:48 | Progress Note ---
Spinal Anesthesia Block - Spinal Anesthesia Block Start Time: 10:15 Stop Time: 10:25 Performed [facility]:: [facility] Procedure: Spinal anesthesia block is being performed for [c/s]. H&P, labs have been reviewed. Patient's questions and concerns have been answered. Informed consent has been performed. Timeout has was performed. Patient in sitting position on side of bed. Sterile prep and drape was performed. 3 mL 1% lidocaine skin wheal at L [3]-L [4]. Needle introducer advanced. 25-gauge spinal needle advanced, without success. Longer needle needed. 17-gauge Tuohy epidural needle advanced to [id number] using air technique, [8.5cm]. 25-gauge spinal needle advanced, positive free-flowing CSF. Spinal dose of [Marcaine 10mg and Precedex 5mcg]. VSS, patient tolerated procedure well.
[2021-08-14] MEDS ORDERED: ePHEDrine SULFATE 50 MG/1 ML INJ IV PRN ×2 (11:18→12:05)
--- NOTE | 2021-08-14 11:52 | Procedure Note ---
OB Delivery Note - Delivery Date of Delivery: 08/14/21 Surgeon: KATERYNA GERARD Estimated blood loss: 500cc - Section Preop diagnosis: repeat , other (Spontaneous rupture of membrane) Postop diagnosis: same section procedure: repeat low transverse Disposition: PACU Complications: none Narrative: See op report - A at 1 minute: 8 at 5 minutes: 9 Gender: Female (8 pounds 4 ounces, 3740 g, 19-3/4 inches, born at 10:55 AM)
--- NOTE | 2021-08-14 12:07 | Operative Report ---
Operative Report Operative Report: Preoperative diagnosis: Intrauterine at 38 and 2/7 weeks 2. Previous x1 3. Spontaneous rupture of membranes Postoperative diagnosis: Same Procedure: Repeat low transverse section, Surgeon: Dr. Jennifer Britt EBL: 517 cc Urine output: 200 mL IV fluids: 1400 mL Findings: Viable female in the vertex presentation. Weight 8 lbs. 4 oz. 3740 g Apgars 8 and 9. Otherwise normal pelvic anatomy Specimens: None Complications: None Indications: Patient 25-year-old 2 para 1 who presented to labor and delivery with a complaint of spontaneous rupture of membranes and contractions. Patient refused to be checked vaginally however had a positive ROM plus and had a KAREN of 5. Decision was made to proceed with at that time. Patient stated that she was to be scheduled for a bilateral tubal ligation along with her however the consent form was not available therefore it will not be done. Procedure: The patient was admitted to the OR with IV running and in place. She was properly identified as herself. She was given spinal anesthesia in the OR without difficulty. She was placed in the dorsal supine position with a leftward tilt. A Lozano catheter was inserted. She was then prepped and draped in the normal sterile fashion. An Allis test was used to confirm adequate anesthesia. Once confirmed, the incision was made with the scalpel and carried to the underlying fascia using the scalpel and the Bovie. The fascia was incised in the midline and incision was extended bilaterally using the curved Ba scissors. The fascia was then dissected from the underlying rectus muscles in a series of sharp and blunt dissection using the Ba scissors. Muscles were in the in the midline sharply using Metzenbaum scissors and the peritoneum was entered into bluntly using the surgeon's fingers. A bladder blade was then placed into the incision to protect the bladder. Following this the bladder flap was created. Hysterotomy incision was then made in the scalpel. Upon uterine entry, the amniotic sac was ruptured for clear fluid. The was then delivered without difficulty. Her mouth and nose were suctioned on the field. The cord was clamped and cut and he was handed to the waiting NICU personnel. The uterus was then exteriorized and cleared of all clots and debris. The hysterotomy incision was then closed in a running locked fashion using 0 Vicryl. The abdomen was then copiously irrigated with warm normal saline. Following this the uterus was replaced into the abdominal cavity. At this point the muscles were reapproximated in the midline using individual sutures of 0 Vicryl. Following this the fascia was closed in a running fashion using 0 Vicryl. Tissue was then copiously irrigated. Retention sutures were placed in the subcutaneous fat tissue Skin was closed in a running fashion using 3-0 Monocryl. The sponge lap needle and instrument counts were correct 2. The patient tolerated the procedure well. She was taken to recovery in stable condition.
[2021-08-14] MEDS ORDERED: ACETAMINOPHEN 325 MG TAB PO PRN (12:10)
[2021-08-14] MEDS ORDERED: fentaNYL 100 MCG/2 ML INJ IV PRN (12:10)
[2021-08-14] MEDS ORDERED: BUTORPHANOL 2 MG/1 ML INJ IV PRN (12:10)
--- NOTE | 2021-08-14 12:10 | History and Physical Report ---
History of Present Illness Date of examination: 08/14/21 Date of admission: 08/14/21 05:03 Chief complaint: My water broke and I am having contractions History of present illness: Patient is 25-year-old 2 para 1 who presents to labor and delivery with complaint of leaking of fluid and contractions at 38 weeks and 2/7 days. Patient has a EDC of 08/26/2021 and was scheduled for elective repeat on 08/19/2021. She reports an uncomplicated course except for nausea and vomiting in the first trimester. [facility] at 14 weeks. Past History Past Medical History: no pertinent history Past Surgical History: section Social history: single - Obstetrical History Expected Date of Delivery: 08/26/21 Actual Gestation: 38 Week(s) 2 Day(s) : 2 Medications and Allergies Allergies Allergy/AdvReac Type Severity Reaction Status Date / Time No Known Allergies Allergy Unverified 08/14/21 08:04 Home Medications Medication Instructions Recorded Confirmed Last Taken Type Vitamins Tablet 1 tab PO QDAY 07/24/17 08/14/21 08/12/21 History Active Meds: Active Medications Diphenhydramine HCl (Diphenhydramine 50 Mg/Ml Vial) 12.5 mg IV Q2H PRN PRN Reason: Itching Ephedrine Sulfate (Ephedrine Sulfate 50 Mg/1 Ml Inj) 10 mg IV Q2M PRN PRN Reason: Hypotension Hydromorphone HCl (Hydromorphone 1 Mg/1 Ml Inj) 0.5 mg IV Q4H PRN PRN Reason: breakthrough pain > 7/10 Lactated Ringer's (Lactated Ringers) 1,000 mls @ 2,250 mls/hr IV PREOP DEB Stop: 08/15/21 08:42 Last Admin: 08/14/21 08:30 Dose: 2,250 mls/hr Oxytocin/Sodium Chloride (Pitocin/Ns 30 Unit/500ml) 30 units in 500 mls @ 0 mls/hr IV TITR DEB; Protocol Cefazolin Sodium (Ancef/Sterile Water 2 Gm/20 Ml) 2 gm in 20 mls @ 80 mls/hr IV PREOP NR; Protocol Stop: 08/14/21 23:59 Nalbuphine HCl (Nalbuphine 10 Mg/1 Ml Inj) 2.5 mg IV Q2H PRN PRN Reason: Itching Naloxone HCl (Naloxone 0.4 Mg/1 Ml Inj) 0.2 mg IV Q2MIN PRN PRN Reason: Res Rate </= 8 or 02 SAT < 92% Ondansetron HCl (Ondansetron 4 Mg/2 Ml Inj) 4 mg IV Q8H PRN PRN Reason: Nausea And Vomiting Promethazine HCl (Promethazine 25 Mg Tab) 25 mg PO Q6H PRN PRN Reason: Nausea And Vomiting Promethazine HCl (Promethazine 25 Mg Rect Supp) 25 mg NH Q6H PRN PRN Reason: Nausea And Vomiting Review of Systems All systems: negative Constitutional: weight gain Breasts: deferred Genitourinary: deferred - Vital Signs Vital signs: Vital Signs Temp Pulse Resp BP Pulse Ox 98.2 F 104 H 14 125/73 98 08/14/21 05:37 08/14/21 05:37 08/14/21 05:37 08/14/21 05:37 08/14/21 05:37 Temp Pulse Resp BP Pulse Ox 98.2 F 103 H 14 125/73 99 08/14/21 05:37 08/14/21 08:11 08/14/21 05:37 08/14/21 05:46 08/14/21 08:11 - Physical Exam Breasts: Cardiovascular: Regular rate, Normal S1, Normal S2 Lungs: Positive: Clear to auscultation, Normal air movement Abdomen: Positive: normal appearance, soft, normal bowel sounds. Negative: distention, tenderness Genitourinary (Female): Positive: normal external genitalia, normal perenium Vulva: both: normal Vagina: Positive: normal moisture. Negative: discharge Cervix: Positive: lesion. Negative: discharge Uterus: Positive: normal size, normal contour Adnexa: both: normal Anus/Rectum: Positive: normal perianal skin, heme negative. Negative: rectal mass, hemorrhoids Extremities: Deep Tendon Reflex Grade: Normal +2 Results Result Diagrams: 08/14/21 06:36 Abnormal lab results 08/14/21 08/14/21 Range/Units 05:51 06:36 MCH 25 L (28-32) pg RDW 24.9 H (13.2-15.2) % Seg Neutrophils % 72.0 H (40.0-70.0) % Membranes Rupture Positive A (Negative) All other labs normal. Assessment and Plan IUP at 30 2/7 weeks here with complaint of rupture of membranes and contractions. Patient refused vaginal exam, so also will be performed to evaluate KAREN. Cervical exam is unknown, however patient does appear to be co ntracting every 4 to 5 minutes. If the KAREN is indeed diminished we will proceed with repeat section.
[2021-08-14] MEDS ORDERED: SIMETHICONE 80 MG CHEW TAB PO PRN (14:12)
[2021-08-14] MEDS ORDERED: oxyCODONE /ACETAMINOPHEN 5-325MG TAB PO PRN (14:12)
[2021-08-14] MEDS ORDERED: IBUPROFEN 800 MG TAB PO PRN (14:12)
[2021-08-14] MEDS ORDERED: MORPHINE 4 MG/1 ML INJ IV PRN (14:12)
[2021-08-14] MEDS ORDERED: WITCH HAZEL/ GLYCERIN PAD TP PRN (14:12)
[2021-08-14] MEDS ORDERED: LANOLIN/ZINC/DIMETHICONE (LANSINOH) 7 GM TP PRN (14:12)
[2021-08-14] MEDS ORDERED: D5W/LACTATED RINGERS 1,000 ML IV SCH (14:12)
[2021-08-14] MEDS: KETOROLAC 30 MG/1 ML INJ IV PRN ×2 (14:38→20:47)
--- NOTE | 2021-08-14 16:28 | Post Anesthesia Evaluation ---
- Post Anesthesia Evaluation Patient Participated: Yes Airway Patent: Yes Stable Respiratory Function: Yes Nausea/Vomiting: No Temp > 96.8F: Yes Pain Manageable: Yes Adequeate Hydration: Yes Anesthesia Complications: No Block Receding Appropriately: Yes Patient on Ventilator: No
[2021-08-14] MEDS ORDERED: NALOXONE IV SCH (17:00)
[2021-08-14] MEDS ORDERED: SODIUM CHLORIDE 0.9% IV SCH (17:00)
[2021-08-14] MEDS: HYDROmorphone 1 MG/1 ML INJ IV PRN (18:02)
[2021-08-14] MEDS ORDERED: MAGNESIUM HYDROXIDE (MOM) ORAL LIQD UDC PO PRN (22:00)
[2021-08-15] MEDS: HYDROmorphone 1 MG/1 ML INJ IV PRN (00:36)
[2021-08-15 01:26] LABS: Hemoglobin 10.5 gm/dl (10.1-14.3)
[2021-08-15] MEDS: KETOROLAC 30 MG/1 ML INJ IV PRN (06:09)
--- NOTE | 2021-08-15 08:06 | Progress Note ---
Assessment and Plan A: POD#1 s/p repeat at term Morbid Obesity P: Routine postop care Subjective - Subjective Date of service: 08/15/21 Principal diagnosis: s/p repeat section Interval history: Pt without complaints. + flatus. No bowel movement. Patient reports: appetite normal, voiding normally, pain well controlled, flatus, ambulating normally [place]: doing well Objective - Vital Signs Latest vital signs: Vital Signs Temp Pulse Resp BP BP Pulse Ox Pulse Ox 08/15/21 06:09 12 08/15/21 04:52 97.6 F 20 105/51 08/15/21 00:55 97.9 F 75 20 99/47 97 08/15/21 00:36 12 08/14/21 20:47 12 08/14/21 20:20 97.5 F L 91 H 20 95/48 95 08/14/21 20:00 98 08/14/21 18:02 20 08/14/21 17:03 98.4 F 78 20 105/51 96 08/14/21 14:14 100 08/14/21 13:55 97.8 F 67 20 107/58 08/14/21 12:55 56 L 21 115/68 98 08/14/21 12:40 55 L 25 H 115/64 96 08/14/21 12:25 59 L 23 113/57 97 08/14/21 12:10 58 L 20 110/57 96 08/14/21 12:05 57 L 19 111/53 08/14/21 12:00 59 L 22 108/63 98 08/14/21 11:55 98.0 F 62 23 95/55 97 08/14/21 08:11 103 H 99 08/14/21 08:06 77 98 08/14/21 08:01 86 97 Intake and Output 08/14/21 08/15/21 08/15/21 22:59 06:59 14:59 Intake Total 360 360 Output Total 1650 2200 Balance -1290 -1840 Intake: Intake, Free Water 360 360 Output: Urine 1650 2200 Indwelling Catheter 1650 2200 Other: Total, Output Amount 700 800 - Exam Breasts: Present: deferred Abdomen: Present: soft Uterus: Present: fundal height at umbilicus Extremities: Present: edema (trace ) Incision: Present: dressed - Labs Labs: Abnormal lab results 08/14/21 Range/Units 06:36 MCH 25 L (28-32) pg RDW 24.9 H (13.2-15.2) % Seg Neutrophils % 72.0 H (40.0-70.0) %
[2021-08-15] MEDS ORDERED: oxyCODONE /ACETAMINOPHEN 5-325MG TAB PO PRN (09:00)
[2021-08-15] MEDS: PRENATAL VIT27-FE FUMARATE-FOLIC ACID VIT TAB PO SCH (10:45)
[2021-08-15] MEDS: IBUPROFEN 800 MG TAB PO SCH ×3 (10:46→21:50)
[2021-08-16] MEDS: IBUPROFEN 800 MG TAB PO SCH ×4 (05:20→21:33)
--- NOTE | 2021-08-16 08:29 | Progress Note ---
Assessment and Plan A: POD#2 s/p R. C/S at term P: Continue with routine care Subjective - Subjective Date of service: 08/16/21 Principal diagnosis: s/p repeat section Interval history: POD#2 s/p R. C/S at term, patient is feeling well and is without complaints. She reports no issue with ambulation unassisted, decreasing lochia, adequate pain control and +flatus. Patient reports: appetite normal, voiding normally, pain well controlled, flatus, no bowel movement : doing well Objective - Vital Signs Latest vital signs: Vital Signs Temp Pulse Resp BP Pulse Ox Pulse Ox 08/16/21 00:30 97.8 F 83 20 99/52 98 08/15/21 20:15 97 08/15/21 16:27 98.0 F 84 18 103/72 96 08/15/21 08:57 97 Intake and Output 08/15/21 08/16/21 08/16/21 23:59 07:59 15:59 Intake Total 1200 240 Output Total 750 Balance 450 240 Intake: Oral 120 Intake, Free Water 1200 120 Output: Urine 750 Void 750 Other: Total, Intake Amount 120 Total, Output Amount 750 # Voids Void 1 1
--- NOTE | 2021-08-16 08:33 | Discharge Summary ---
Providers - Providers Date of Admission: 08/14/21 05:03 Date of discharge: 08/17/21 Attending physician: KELLY LANE Primary care physician: KELLY LANE Hospitalization Reason for admission: section, IUP at term Delivery: Procedure: repeat low transverse Incision: dry, intact, warm Other procedures: none complications: none Discharge diagnosis: IUP at term delivered Strong baby: female Hospital course: Unremarkable Condition at discharge: Good Disposition: 01 HOME / SELF CARE / HOMELESS Plan - Discharge Medications Prescriptions: Ibuprofen [Motrin 800 MG tab] 800 mg PO Q8HR PRN #30 tablet PRN Reason: Pain, Moderate (4-6) oxyCODONE /ACETAMINOPHEN [Percocet 5/325] 1 tab PO Q6HR PRN #40 tablet PRN Reason: Pain - Provider Discharge Summary Activity: routine, no sex for 6 weeks, no heavy lifting 4 weeks, no strenuous exercise Diet: routine Instructions: routine Additional instructions: [] Smoking cessation referral if applicable(refer to patient education folder for contact #) [] Refer to [facility]'s [facility] Booklet Call your doctor immediately for: * Fever > 100.5 * Heavy vaginal bleeding ( >1 pad per hour) * Severe persistent headache * Shortness of breath * Reddened, hot, painful area to leg or breast * Drainage or odor from incision. * Keep incision clean and dry at all times and follow doctor's instructions regarding bathing/showering - Follow up plan Follow up: KELLY LANE MD [Primary Care Provider] - 14 Days
[2021-08-17] MEDS: IBUPROFEN 800 MG TAB PO SCH ×2 (06:32→12:50)
[2021-08-17] MEDS: PRENATAL VIT27-FE FUMARATE-FOLIC ACID VIT TAB PO SCH (10:15)
[2021-08-17 14:41] VITALS: BP 104/57
== END 2021-08-17 16:00 | disposition home or self-care (01) | DRG 766 ==
LOC: TRG 05:02 → OBSVTOIN 05:03 → APU 05:03 → TRG 05:35 → APU 10:20 → OB 13:35
PROVIDERS: ADMIT Obstetrics & Gynecology; ATTEND Obstetrics & Gynecology
PROC: 10D00Z1 Extraction of Products of Conception, Low, Open Approach (ICD-10-PCS; principal; 2021-08-14)
DX: O34.211 Maternal care for low transverse scar from previous cesarean delivery (principal); Z3A.38 38 weeks gestation of pregnancy; Z37.0 Single live birth; Z20.822 Contact with and (suspected) exposure to COVID-19; O99.214 Obesity complicating childbirth; E66.01 Morbid (severe) obesity due to excess calories; O99.824 Streptococcus B carrier state complicating childbirth
CPT/HCPCS: 36415; 59025; 76815; 84112; 85014; 85018; 85025; 86592; 86850; 86900; 86901; 96360; 99211; G0378; J3490; J7060; J7121; G0463; J0690; J1100; J1170; J1885; J2405; J2765; J7120; U0003